=== PATIENT | male | born 2005 | race Caucasian/White ===

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

== ENCOUNTER 2025-01-29 12:58 | Emergency (ER) | payer OTHER ==
[~2025-01-29] VITALS: Ht 170.2 cm; Wt 68.0 kg
[2025-01-29 13:57] VITALS: BP 117/79
== END 2025-01-29 14:01 | disposition home or self-care (01) ==
LOC: ER 12:58
DX: L72.3 Sebaceous cyst (principal); F43.10 Post-traumatic stress disorder, unspecified
CPT/HCPCS: 99282; A9270